=== PATIENT | female | born 1975 | race Hispanic/Latino ===

== ENCOUNTER → 2024-09-12 | Day surgery (SDC) | payer OTHER ==
[~2024-09-12] MED LIST: ATORVASTATIN CA10 MG PO; HYOSCYAMINE SULFATE 0.5 MG/ML INJ ONE; MULTI-VITAMIN1 EACH PO
[2024-09-12] MEDS: LACTATED RINGER'S 1,000 ML ONE (09:48)
[2024-09-12 12:27] VITALS: TEMP 97.4
[2024-09-12 13:00] VITALS: BP 107/71; PULSE 90; RESP 16; O2SAT 98
== END | disposition home or self-care (01) ==
LOC: OR 08:59
PROVIDERS: ATTEND Internal Medicine Gastroenterology
DX: K21.9 Gastro-esophageal reflux disease without esophagitis (principal); K63.5 Polyp of colon; K31.7 Polyp of stomach and duodenum; K29.50 Unspecified chronic gastritis without bleeding; B96.81 Helicobacter pylori [H. pylori] as the cause of diseases classified elsewhere; K20.90 Esophagitis, unspecified without bleeding; K44.9 Diaphragmatic hernia without obstruction or gangrene; K64.8 Other hemorrhoids; E66.01 Morbid (severe) obesity due to excess calories; E78.5 Hyperlipidemia, unspecified; M25.519 Pain in unspecified shoulder; F17.200 Nicotine dependence, unspecified, uncomplicated; Z01.810 Encounter for preprocedural cardiovascular examination; Z79.899 Other long term (current) drug therapy; Z68.37 Body mass index [BMI] 37.0-37.9, adult
CPT/HCPCS: 43239; 45380; 93005; J1980; J2470; J7121; 45378; 45385